=== PATIENT | female | born 1990 | race Caucasian/White ===

== ENCOUNTER 2023-12-26 19:13 | Emergency (ER) | payer BC ==
[~2023-12-26] VITALS: Ht 152.4 cm; Wt 63.5 kg
[2023-12-26 20:03] VITALS: BP_SYST 117; PULSE 98; RESP 18; TEMP 98.9; O2SAT 98
[2023-12-26] MEDS ORDERED: AUG875 PO (23:05)
[2023-12-26 23:21] VITALS: BP_SYST 120; PULSE 98; RESP 18; TEMP 98; O2SAT 98
== END 2023-12-26 23:21 | disposition home or self-care (01) ==
LOC: SED 19:13
DX: H66.91 Otitis media, unspecified, right ear (principal); H92.01 Otalgia, right ear; R05.9 Cough, unspecified; R09.89 Other specified symptoms and signs involving the circulatory and respiratory systems; Z79.2 Long term (current) use of antibiotics
CPT/HCPCS: 99283